=== PATIENT | male | born 1940 | race Caucasian/White ===

== ENCOUNTER 2018-06-28 13:33 | Outpatient (CLI) | payer OTHER ==
[~2018-06-28 13:33] MED LIST: CLONAZEPAM1 MG PO; COLACE100 MG PO; PERCOCET 5/3251 TAB PO
[2018-06-30] MEDS ORDERED: CIPRO500 MG/5 M PO (10:51)
[2018-06-30] MEDS ORDERED: ZOCOR20 MG PO (10:52)
[2018-06-30] MEDS ORDERED: ETODOLAC400 MG PO (10:52)
[2018-06-30] MEDS ORDERED: LEVO-T25 MCG PO (10:52)
[2018-06-30] MEDS ORDERED: TANDEM PLUS CA1 EACH PO (10:52)
[2018-06-30] MEDS ORDERED: BACLOFEN10 MG PO (10:53)
[2018-06-30] MEDS ORDERED: ENALAPRIL MALEA20 MG PO (10:53)
[2018-06-30] MEDS ORDERED: TOLTERODINE TART4 MG PO (10:54)
[2018-06-30] MEDS ORDERED: OMEPRAZOLE20 M1 PO (10:54)
[2018-06-30] MEDS ORDERED: GEMFIBROZIL600 MG PO (10:54)
== END 2018-06-28 14:58 | disposition home or self-care (01) ==
LOC: RAD 13:33
DX: C67.0 Malignant neoplasm of trigone of bladder (principal); C67.1 Malignant neoplasm of dome of bladder

== ENCOUNTER 2018-07-04 06:07 | Day surgery (SDC) | payer OTHER ==
[~2018-07-04 06:07] MED LIST changes: +BACLOFEN10 MG PO; +CIPRO500 MG/5 M PO; +ENALAPRIL MALEA20 MG PO; +ETODOLAC400 MG PO; +GEMFIBROZIL600 MG PO; +LEVO-T25 MCG PO; +OMEPRAZOLE20 M1 PO; +TANDEM PLUS CA1 EACH PO; +TOLTERODINE TART4 MG PO; +ZOCOR20 MG PO
[2018-07-04] MEDS ORDERED: PERCOCET 5-3251 EACH PO (13:09)
== END 2018-07-04 14:40 | disposition home or self-care (01) ==
LOC: CIR.AMB 06:07
DX: C67.1 Malignant neoplasm of dome of bladder (principal)
CPT/HCPCS: 36561; C1751